=== PATIENT | female | born 1980 | race Hispanic/Latino ===

== ENCOUNTER 2018-08-11 12:42 | Emergency (ER) | payer OTHER, SELFPAY ==
[2018-08-11] MEDS ORDERED: KETOROLAC 30 MG/ML INJ ONE (14:01)
[2018-08-11] MEDS ORDERED: DIPHENHYDRAMINE 50 MG/ML VIAL ONE (14:01)
[2018-08-11] MEDS ORDERED: METOCLOPRAMIDE 10 MG/2mL INJ ONE (14:01)
[2018-08-11] MEDS ORDERED: NA CHLORIDE 0.9% 1,000 ML ONE (14:02)
--- NOTE | 2018-08-11 14:13 | RAD REPORT ---
EXAM DESCRIPTION: CT - Head Brain Wo Cont - 08/11/2018 2:02 pm CLINICAL HISTORY: HEADACHE Headache, nausea and vomiting. COMPARISON: HEAD BRAIN W O CONTRAST dated 03/28/2010 TECHNIQUE: All CT scans are performed using dose optimization technique as appropriate and may inclu de automated exposure control or mA/KV adjustment according to patient size. FINDINGS: No intracranial hemorrhage, hydrocephalus or extra-axial fluid collection.No areas of brai n edema or evidence of midline shift. The paranasal sinuses and mastoids are clear. The calvarium is intact. IMPRESSION: No acute intracranial abnormality.
--- NOTE | 2018-08-11 15:19 | EDPHYS ---
Physician Documentation [facility] Name: Marce Wu Age: 37 yrs Sex: Female : 1980 Arrival Date: 08/11/2018 Time: 12:45 Bed 30 Private MD: William So ED Physician Tramaine Sherwood HPI: 08/11 15:00 This 37 yrs old Female presents to ER via Ambulatory with complaints of pm1 Headache. 15:00 The patient complains of pain to the top of head and forehead. The patient describes pm1 the headache as aching, constant. Onset: The symptoms/episode began/occurred 4 day(s) ago. Associated signs and symptoms: Pertinent positives: nausea, vomiting, Pertinent negatives: dizziness, fever, paresthesias, vision changes, vision loss, weakness. Severity of symptoms: in the emergency department the pain is actually worse. Headache History: The patient has had previous headaches and this one is different than previous episodes. The symptoms are alleviated by nothing. the symptoms are aggravated by nothing. The patient has experienced similar episodes in the past, multiple times. The patient has not recently seen a physician. 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 - Social history:: Smoking status: Patient/guardian denies using tobacco. - Ebola Screening: : No symptoms or risks identified at this time. ROS: 15:00 Constitutional: Negative for fever, chills, and weight loss, Eyes: Negative for injury, pm1 pain, redness, and discharge, ENT: Negative for injury, pain, and discharge, Neck: Negative for injury, pain, and swelling, Cardiovascular: Negative for chest pain, palpitations, and edema, Respiratory: Negative for shortness of breath, cough, wheezing, and pleuritic chest pain, Back: Negative for injury and pain, : Negative for injury, bleeding, discharge, and swelling, MS/Extremity: Negative for injury and deformity, Skin: Negative for injury, rash, and discoloration. 15:00 Abdomen/GI: Positive for nausea and vomiting, Negative for abdominal pain, diarrhea, constipation. 15:00 Neuro: Positive for headache. Exam: 15:00 Constitutional: This is a well developed, well nourished patient who is awake, alert, pm1 and in no acute distress. Eyes: Pupils equal round and reactive to light, extra-ocular motions intact. Lids and lashes normal. Conjunctiva and sclera are non-icteric and not injected. Cornea within normal limits. Periorbital areas with no swelling, redness, or edema. ENT: Nares patent. No nasal discharge, no septal abnormalities noted. Tympanic membranes are normal and external auditory canals are clear. Oropharynx with no redness, swelling, or masses, exudates, or evidence of obstruction, uvula midline. Mucous membranes moist. Neck: Trachea midline, no thyromegaly or masses palpated, and no cervical lymphadenopathy. Supple, full range of motion without nuchal rigidity, or vertebral point tenderness. No Meningismus. Chest/axilla: Normal chest wall appearance and motion. Nontender with no deformity. No lesions are appreciated. Cardiovascular: Regular rate and rhythm with a normal S1 and S2. No gallops, murmurs, or rubs. Normal PMI, no JVD. No pulse deficits. Respiratory: Lungs have equal breath sounds bilaterally, clear to auscultation and percussion. No rales, rhonchi or wheezes noted. No increased work of breathing, no retractions or nasal flaring. 15:00 Abdomen/GI: Soft, non-tender, with normal bowel sounds. No distension or tympany. No guarding or rebound. No evidence of tenderness throughout. Back: No spinal tenderness. No costovertebral tenderness. Full range of motion. Skin: Warm, dry with normal turgor. Normal color with no rashes, no lesions, and no evidence of cellulitis. MS/ Extremity: Pulses equal, no cyanosis. Neurovascular intact. Full, normal range of motion. 15:00 Head/face: Noted is no obvious of injury or deformity except Scalp tenderness with palpation. 15:00 Neuro: Orientation: is normal, Motor: is normal, moves all fours. Vital Signs: 12:57 BP 133 / 90; Pulse 88; Resp 16 S; Temp 98.1(TE); Pulse Ox 99% on R/A; Weight 72.57 kg aa5 (R); Height 5 ft. 3 in. (160.02 cm) (R); Pain 10/10; 14:07 BP 122 / 88; Pulse 75; Resp 18; Pulse Ox 99% on R/A; tl3 14:53 Pulse 66; Resp 18; Pulse Ox 100% ; tl3 12:57 Body Mass Index 28.34 (72.57 kg, 160.02 cm) aa5 MDM: 13:32 Patient medically screened. pm1 15:15 Data reviewed: vital signs. Data interpreted: Pulse oximetry: on room air is 100 %. pm1 Interpretation: normal. Counseling: I had a detailed discussion with the patient and/or guardian regarding: the historical points, exam findings, and any diagnostic results supporting the discharge/admit diagnosis, radiology results, the need for outpatient follow up, to return to the emergency department if symptoms worsen or persist or if there are any questions or concerns that arise at home. 08/11 13:50 Order name: CT Head Brain wo Cont; Complete Time: 14:17 pm1 08/11 13:50 Order name: IV Saline Lock; Complete Time: 14:10 pm1 Administered Medications: 13:50 Drug: Reglan 10 mg Route: IVP; Infused Over: 2 mins; Site: right forearm; tl3 15:32 Follow up: Response: No adverse reaction ak1 13:50 Drug: TORadol 30 mg Route: IVP; Infused Over: 2 mins; Site: right forearm; tl3 15:32 Follow up: Response: No adverse reaction; Pain is decreased ak1 13:50 Drug: Benadryl 25 mg Route: IVP; Infused Over: 2 mins; Site: right forearm; tl3 15:32 Follow up: Response: No adverse reaction ak1 Disposition: 08/11/18 15:16 Discharged to Home. Impression: Headache. - Condition is Stable. - Discharge Instructions: General Headache Without Cause. - Prescriptions for Fiorinal 50- 325-40 mg Oral Capsule - take 1 capsule by ORAL route every 4 hours As needed - not to exceed 6 capsules per day; 20 capsule. - Medication Reconciliation Form, Thank You Letter form. - Follow up: Emergency Department; When: As needed; Reason: Worsening of condition. Follow up: Private Physician; When: 2 - 3 days; Reason: Recheck today's complaints, Continuance of care, Re-evaluation by your physician. - Problem is new. - Symptoms have improved. Signatures: Dispatcher [employer] EDMS Felisha Wheeler, RN RN aa5 Antonina Billingsley RN RN ak1 Nikos Wise, PEDIATRIC SPEECH THERAPIST PEDIATRIC SPEECH THERAPIST pm1 Meche Garcia RN RN tl3 Corrections: (The following items were deleted from the chart) 15:33 15:16 08/11/2018 15:16 Discharged to Home. Impression: Headache. Condition is Stable. ak1 Forms are Medication Reconciliation Form, Thank You Letter, Antibiotic Education, Prescription Opioid Use. Follow up: Emergency Department; When: As needed; Reason: Worsening of condition. Follow up: Private Physician; When: 2 - 3 days; Reason: Recheck today's complaints, Continuance of care, Re-evaluation by your physician. Problem is new. Symptoms have improved. pm1
--- NOTE | 2018-08-11 15:19 | ER ---
Nurse's Notes [facility] Name: Marce Wu Age: 37 yrs Sex: Female : 1980 Arrival Date: 08/11/2018 Time: 12:45 Bed 30 Private MD: William So Diagnosis: Headache Presentation: 08/11 12:55 Presenting complaint: Patient states: Headache to whole head that began Wednesday. Pt also aa5 reports nausea and vomiting. Pt states "I can't keep anything down". Transition of care: patient was not received from another setting of care. Onset of symptoms was July 2018. Risk Assessment: Do you want to hurt yourself or someone else? Patient reports no desire to harm self or others. Initial Sepsis Screen: Does the patient meet any 2 criteria? No. Patient's initial sepsis screen is negative. Does the patient have a suspected source of infection? No. Patient's initial sepsis screen is negative. Care prior to arrival: None. 12:55 Method Of Arrival: Ambulatory aa5 12:55 Acuity: NILE 3 aa5 Triage Assessment: 15:33 General: Appears in no apparent distress. GI: Reports nausea. 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 - Social history:: Smoking status: Patient/guardian denies using tobacco. - Ebola Screening: : No symptoms or risks identified at this time. Screenin:20 Abuse screen: Denies threats or abuse. Nutritional screening: No deficits noted. tl3 Tuberculosis screening: No symptoms or risk factors identified. Fall Risk None identified. Assessment: 13:20 General: Appears distressed, uncomfortable, slender, well groomed, well developed, well tl3 nourished, Behavior is calm, cooperative, appropriate for age. Pain: Complains of pain in headache. Neuro: Level of Consciousness is awake, alert, obeys commands, Oriented to person, place, time, situation, Appropriate for age. Cardiovascular: Patient's skin is warm and dry. Respiratory: Airway is patent Respiratory effort is even, unlabored, Respiratory pattern is regular, symmetrical. GI: Pt is actively vomiting. : No signs and/or symptoms were reported regarding the genitourinary system. EENT: No signs and/or symptoms were reported regarding the EENT system. Derm: No signs and/or symptoms reported regarding the dermatologic system. Musculoskeletal: No signs and/or symptoms reported regarding the musculoskeletal system. 14:10 Reassessment: pt is feeling anxious, twisting in the bed, thinks it is an adverse tl3 reaction to Benadryl, Nikos notified, no new orders, will continue to monitor. Vital Signs: 12:57 BP 133 / 90; Pulse 88; Resp 16 S; Temp 98.1(TE); Pulse Ox 99% on R/A; Weight 72.57 kg aa5 (R); Height 5 ft. 3 in. (160.02 cm) (R); Pain 10/10; 14:07 BP 122 / 88; Pulse 75; Resp 18; Pulse Ox 99% on R/A; tl3 14:53 Pulse 66; Resp 18; Pulse Ox 100% ; tl3 12:57 Body Mass Index 28.34 (72.57 kg, 160.02 cm) aa5 ED Course: 12:45 Patient arrived in ED. ag5 12:46 William So MD is Private Physician. ag5 12:56 Triage completed. aa5 13:07 [facility] pm1 13:07 Tramaine Sherwood MD is Attending Physician. pm1 13:14 Meche Garcia, ROQUE is Primary Nurse. tl3 13:20 Patient has correct armband on for positive identification. Bed in low position. Call tl3 light in reach. Side rails up X2. Pulse ox on. NIBP on. Warm blanket given. 13:20 No provider procedures requiring assistance completed. Initial lab(s) drawn, by me, tl3 held in ED. Inserted saline lock: 22 gauge in right forearm, using aseptic technique. Blood collected. 14:03 CT Head Brain wo Cont In Process Unspecified. EDMS 14:07 Arm band placed on left wrist. tl3 15:33 IV discontinued, intact, bleeding controlled, No redness/swelling at site. Pressure ak1 dressing applied. Administered Medications: 13:50 Drug: Reglan 10 mg Route: IVP; Infused Over: 2 mins; Site: right forearm; tl3 15:32 Follow up: Response: No adverse reaction ak1 13:50 Drug: TORadol 30 mg Route: IVP; Infused Over: 2 mins; Site: right forearm; tl3 15:32 Follow up: Response: No adverse reaction; Pain is decreased ak1 13:50 Drug: Benadryl 25 mg Route: IVP; Infused Over: 2 mins; Site: right forearm; tl3 15:32 Follow up: Response: No adverse reaction ak1 Outcome: 15:16 Discharge ordered by MD. pm1 15:33 Discharged to home ambulatory, with family. ak1 15:33 Condition: improved 15:33 Discharge instructions given to patient, family, Instructed on discharge instructions, follow up and referral plans. no drinking with medication, no driving heavy equipment, medication usage, Demonstrated understanding of instructions, follow-up care, medications, Prescriptions given X 1. 15:33 Patient left the ED. ak1 Signatures: Dispatcher [employer] EDMS Felisha Wheeler RN RN aa5 Antonina Billingsley RN RN ak1 Nikos Wise, LICENSE DISTRIBUTOR LICENSE DISTRIBUTOR pm1 Meche Garcia RN RN tl3 Richa Conklin ag5
[2018-08-11 15:51] VITALS: TEMP 98.1
[2018-08-11 15:55] VITALS: BP 122/88
[2018-08-11 15:59] VITALS: O2SAT 100
== END 2018-08-11 15:33 | disposition home or self-care (01) ==
LOC: ER 12:42
DX: R51 Headache (principal); E03.9 Hypothyroidism, unspecified; J45.909 Unspecified asthma, uncomplicated
CPT/HCPCS: 70450; 96374; 96375; 99284; J2765; J7030

== ENCOUNTER 2019-05-12 09:28 | Emergency (ER) | payer BC ==
[2019-05-12] MEDS ORDERED: ONDANSETRON 4 MG/2 ML VIAL ONE (10:10)
[2019-05-12] MEDS ORDERED: MORPHINE 4 MG/ML SYR ONE (10:10)
[2019-05-12] MEDS ORDERED: NA CHLORIDE 0.9% 1,000 ML ONE (10:10)
[2019-05-12 10:36] LABS: Absolute Lymphocytes (CBC) 0.7 K/uL (0.7-4.9); Basophils % 0.1 % (0-1.3); Hematocrit 42.7 % (36.0-45.0); Lymphocytes % 7.3 % (15.3-44.8); MPV 7.6 fL (7.6-11.3); RBC Red Blood Cell Count 4.85 M/uL (3.86-4.86)
[2019-05-12 10:49] LABS: Albumin 3.4 g/dL (3.4-5.0); Bilirubin Direct 0.2 mg/dL (0-0.2); Bilirubin Total 0.4 mg/dL (0.2-1.0); Potassium 3.3 mmol/L (3.5-5.1); Protein, Total 7.2 g/dL (6.4-8.2)
[2019-05-12 11:12] LABS: Blood Morphology Comment NOT SEEN (NOT SEEN); Platelet Estimate ADEQ
--- NOTE | 2019-05-12 11:59 | RAD REPORT ---
EXAM DESCRIPTION: CT - Abdomen Pelvis W Contrast - 05/12/2019 11:15 am CLINICAL HISTORY: lower abdominal pain COMPARISON: None. TECHNIQUE: Biphasic, helical CT imaging of the abdomen and pelvis was performed following 100 ml non -ionic IV contrast. No oral contrast given. All CT scans are performed using dose optimization technique as appropriate and may include automated exposure control or mA/KV adjustment according to patient size. FINDINGS: No suspicious findings in the lung bases. The liver, spleen, and pancreas show no suspicious findings. Cholecystectomy clips are present. No ab normal biliary tree dilatation. Duct stones can be occult on CT imaging. Symmetric renal function is seen with no hydronephrosis or suspicious renal mass. No pyelonephritis o r acute parenchymal process. No adrenal abnormalities. No urinary bladder wall thickening or mass evident. Bladder is mostly contracted which limits detail . No uterus abnormality. No left ovary abnormality. Right ovary may contain a 3 centimeter cyst. Nitza ent has numerous fluid filled nondilated small bowel loops abutting the ovaries making it difficult t o distinguish ovarian cyst from small bowel loop. No gastric dilatation or wall thickening. Small bowel loops are not dilated. No small bowel wall thic kening or enhancement abnormality identified. Appendix is normal. Moderate stool volume seen in the c ecum and ascending colon. The hepatic flexure down to the rectum shows prominent wall thickening or m ucosal edema. A focal mass is not identified. No free air, free fluid or pneumatosis. No significant stranding adjacent to the colon. No hernia, mass or bulky lymphadenopathy. No suspicious bony findings. IMPRESSION: Nonspecific colitis findings seen as nodular, thickened mucosa of the colon from hepatic flexure to the rectum. Nonspecific fluid-filled nondilated small bowel loops. The appendix is normal. Suspected right ovarian cyst. This is difficult to distinguish from the abutting fluid-filled small b owel loops. This is probably not a significant finding. Cholecystectomy with no biliary tree dilatation.
[2019-05-12 12:01] LABS: Urine Blood TRACE (NEG); Urine Glucose NEGATIVE (NEG); Urine Protein 1+ (NEG); Urine Specific Gravity 1.025 (1.005-1.030); Urine pH 5.5 (5.0-7.0)
--- NOTE | 2019-05-12 12:09 | ER ---
Nurse's Notes [facility] Name: Marce Wu Age: 38 yrs Sex: Female : 1980 Arrival Date: 05/12/2019 Time: 09:30 Bed 15 Private MD: William So Diagnosis: Colitis;Ovarian Cyst Presentation: 05/12 09:55 Presenting complaint: Patient states: pain in low back, pelvis and thighs that began ss yesterday. 09:55 Transition of care: patient was not received from another setting of care. Onset of ss symptoms was May 11, 2019. Risk Assessment: Do you want to hurt yourself or someone else? Patient reports no desire to harm self or others. Initial Sepsis Screen: Does the patient meet any 2 criteria? No. Patient's initial sepsis screen is negative. Does the patient have a suspected source of infection? No. Patient's initial sepsis screen is negative. Care prior to arrival: None. 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 - Social history:: Smoking status: Patient/guardian denies using tobacco. - Ebola Screening: : Patient denies exposure to infectious person Patient denies travel to an Ebola-affected area in the 21 days before illness onset. Screenin:00 Abuse screen: Denies threats or abuse. Denies injuries from another. Nutritional ca1 screening: No deficits noted. Tuberculosis screening: No symptoms or risk factors identified. Fall Risk None identified. Assessment: 10:00 General: Appears in no apparent distress. comfortable, Behavior is calm, cooperative, ca1 appropriate for age. Pain: Complains of pain in pelvis Pain currently is 6 out of 10 on a pain scale. Pain began 1 day ago. Is continuous. Neuro: Level of Consciousness is awake, alert, obeys commands, Oriented to person, place, time, situation. Cardiovascular: Heart tones S1 S2 present Capillary refill < 3 seconds. Respiratory: Airway is patent Respiratory effort is even, unlabored, Respiratory pattern is regular, symmetrical, Breath sounds are clear bilaterally. GI: Abdomen is flat, non-distended, Bowel sounds present X 4 quads. Abd is soft and non tender X 4 quads. Reports diarrhea. : Urine is cloudy. EENT: No deficits noted. No signs and/or symptoms were reported regarding the EENT system. Derm: Skin is intact, is healthy with good turgor, Skin is pink, warm \T\ dry. Musculoskeletal: Circulation, motion, and sensation intact. Capillary refill < 3 seconds, Range of motion: intact in all extremities. 10:50 Reassessment: Patient appears in no apparent distress at this time. Patient and/or ca1 family updated on plan of care and expected duration. Pain level reassessed. Patient is alert, oriented x 3, equal unlabored respirations, skin warm/dry/pink. 11:42 Reassessment: Patient appears in no apparent distress at this time. Patient is alert, ca1 oriented x 3, equal unlabored respirations, skin warm/dry/pink. 12:20 Reassessment: Patient appears in no apparent distress at this time. Patient is alert, ca1 oriented x 3, equal unlabored respirations, skin warm/dry/pink. Vital Signs: 10:03 BP 102 / 73; Pulse 92; Resp 16; Temp 98.2; Pulse Ox 100% on R/A; Weight 68.04 kg; ss Height 5 ft. 3 in. (160.02 cm); Pain 6/10; 10:50 BP 106 / 65; Pulse 80; Resp 17 S; Pulse Ox 100% on R/A; ca1 11:45 BP 106 / 77; Pulse 71; Resp 18 S; Pulse Ox 100% ; ca1 12:20 BP 108 / 76; Pulse 86; Resp 17 S; Pulse Ox 100% on R/A; ca1 10:03 Body Mass Index 26.57 (68.04 kg, 160.02 cm) ss ED Course: 09:30 Patient arrived in ED. mr 09:31 William So MD is Private Physician. mr 09:46 Carlos Alberto Monterroso PA is PHCP. jmm 09:46 Roque Mckenzie MD is Attending Physician. [facility] 09:56 Glendy Juarez, ROQUE is Primary Nurse. ca1 10:03 Triage completed. ss 10:03 Arm band placed on left wrist. ss 10:05 Patient has correct armband on for positive identification. Placed in gown. Bed in low ca1 position. Call light in reach. Side rails up X 1. Pulse ox on. NIBP on. Warm blanket given. 10:05 No provider procedures requiring assistance completed. ca1 10:11 Radiology exam delayed due to lab results not completed at this time. (BUN/Creatinine) sw test not completed at this time. 10:19 Initial lab(s) drawn, by fl, sent to lab. Urine collected: clean catch specimen, clear. 5 Inserted saline lock: 22 gauge in right antecubital area, using aseptic technique. Blood collected. 10:20 Urine --Ancillary (enter results) Sent. [facility] 10:20 Urine Dipstick--Ancillary (enter results) Sent. [facility] 10:20 Basic Metabolic Panel Sent. [facility] 10:20 CBC with Diff Sent. [facility] 10:21 Creatinine for Radiology Sent. [facility] 10:21 Hepatic Function Sent. [facility] 10:21 Lipase Sent. [facility] 11:15 CT Abd/Pelvis - IV Contrast Only In Process Unspecified. EDMS 12:08 John Arroyo MD is Referral Physician. [facility] 12:21 IV discontinued, intact, bleeding controlled, No redness/swelling at site. Pressure ca1 dressing applied. Administered Medications: 10:20 Drug: NS 0.9% 1000 ml Route: IV; Rate: 1 bolus; Site: right antecubital; ca1 12:09 Follow up: Response: No adverse reaction; IV Status: Completed infusion ca1 10:21 Drug: Zofran 4 mg Route: IVP; Site: right antecubital; ca1 11:40 Follow up: Response: No adverse reaction; Pain is decreased ca1 10:24 Drug: morphine 4 mg {Note: RASS - 0.} Route: IVP; Site: right antecubital; ca1 11:41 Follow up: Response: No adverse reaction; Pain is decreased; RASS: Alert and Calm (0) ca1 Outcome: 12:09 Discharge ordered by . [facility] 12:21 Discharged to home ambulatory, PT's mother is driving her home. ca1 12:21 Condition: stable 12:21 Discharge instructions given to patient, Instructed on discharge instructions, follow up and referral plans. medication usage, Demonstrated understanding of instructions, follow-up care, medications, Prescriptions given X 4. 12:24 Patient left the ED. ca1 Signatures: Dispatcher [employer] EDMS Carlos Alberto Monterroso PA PA jmm Nilton, Natalya mr Odessa Martin, RN RN Kristine Luu Maria [facility] Glendy Juarez RN RN ca1 Corrections: (The following items were deleted from the chart) 10: 10:00 Patient has correct armband on for positive identification. Placed in gown. Bed ca1 in low position. Call light in reach. Side rails up X 1. ca1 10: 10:00 Pulse ox on. NIBP on. ca1 ca1 10: 10:00 Warm blanket given. ca1 ca1
--- NOTE | 2019-05-12 12:09 | EDPHYS ---
Physician Documentation [facility] Name: Marce Wu Age: 38 yrs Sex: Female : 1980 Arrival Date: 05/12/2019 Time: 09:30 Bed 15 Private MD: William So ED Physician Roque Mckenzie HPI: 05/12 09:57 This 38 yrs old Female presents to ER via Ambulatory with complaints of Pelvic jmm Pain. 09:57 The patient presents with pelvic pain. Onset: The symptoms/episode began/occurred jmm acutely, 1 day(s) ago. Modifying factors: The symptoms are alleviated by nothing, the symptoms are aggravated by lying. Associated signs and symptoms: Pertinent negatives: diarrhea, fever, hematuria, nausea, vaginal bleeding, vaginal discharge, vomiting. The patient has experienced a previous episode, approximately 20 years ago, with ruptured ovarian cyst. 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 - Social history:: Smoking status: Patient/guardian denies using tobacco. - Ebola Screening: : Patient denies exposure to infectious person Patient denies travel to an Ebola-affected area in the 21 days before illness onset. ROS: 09:57 Constitutional: Negative for fever, chills, and weight loss, Cardiovascular: Negative jmm for chest pain, palpitations, and edema, Respiratory: Negative for shortness of breath, cough, wheezing, and pleuritic chest pain. 09:57 Abdomen/GI: Positive for abdominal pain. 09:57 All other systems are negative. Exam: 09:57 Constitutional: This is a well developed, well nourished patient who is awake, alert, jmm and in no acute distress. Head/Face: atraumatic. Eyes: EOMI, no conjunctival erythema appreciated ENT: Moist Mucus Membranes Neck: Trachea midline, Supple Chest/axilla: Normal chest wall appearance and motion. Cardiovascular: Regular rate and rhythm. No edema appreciated Respiratory: Normal respirations, no respiratory distress appreciated 09:57 Back: Normal ROM Skin: General appearance color normal MS/ Extremity: Moves all extremities, no obvious deformities appreciated, no edema noted to the lower extremities Neuro: Awake and alert, normal gait Psych: Behavior is normal, Mood is normal, Patient is cooperative and pleasant 09:57 Abdomen/GI: Inspection: abdomen appears normal, Bowel sounds: normal, Palpation: abdomen is soft and non-tender, in all quadrants. Vital Signs: 10:03 BP 102 / 73; Pulse 92; Resp 16; Temp 98.2; Pulse Ox 100% on R/A; Weight 68.04 kg; ss Height 5 ft. 3 in. (160.02 cm); Pain 6/10; 10:50 BP 106 / 65; Pulse 80; Resp 17 S; Pulse Ox 100% on R/A; ca1 11:45 BP 106 / 77; Pulse 71; Resp 18 S; Pulse Ox 100% ; ca1 12:20 BP 108 / 76; Pulse 86; Resp 17 S; Pulse Ox 100% on R/A; ca1 10:03 Body Mass Index 26.57 (68.04 kg, 160.02 cm) ss MDM: 09:57 Patient medically screened. [facility] 12:07 Data reviewed: vital signs, nurses notes. Counseling: I had a detailed discussion with manas the patient and/or guardian regarding: the historical points, exam findings, and any diagnostic results supporting the discharge/admit diagnosis, lab results, radiology results, the need for outpatient follow up, to return to the emergency department if symptoms worsen or persist or if there are any questions or concerns that arise at home. ED course: Pain is decreased in the ED. Patient advised to follow up with GI for further evaluation. Patient otherwise given strict return precautions. Patient understood and agrees with the plan of care. . 05/12 09:58 Order name: Basic Metabolic Panel; Complete Time: : [facility] 05/12 09:58 Order name: CBC with Diff; Complete Time: 11:17 [facility] 05/12 09:58 Order name: Creatinine for Radiology; Complete Time: : [facility] 05/12 09:58 Order name: Hepatic Function; Complete Time: : [facility] 05/12 09:58 Order name: Lipase; Complete Time: : [facility] 05/12 10:03 Order name: CPK; Complete Time: : [facility] 05/12 09:58 Order name: IV Saline Lock; Complete Time: 10: [facility] 05/12 09:58 Order name: CT Abd/Pelvis - IV Contrast Only; Complete Time: 12:06 [facility] 05/12 10:08 Order name: Urine Dipstick--Ancillary (enter results); Complete Time: 12:06 05/12 10:08 Order name: Urine --Ancillary (enter results); Complete Time: 12:06 05/12 11:12 Order name: Manual Differential; Complete Time: 11:17 [facility] 05/12 09:58 Order name: Labs collected and sent; Complete Time: 10:21 [facility] 05/12 09:58 Order name: Urine Dipstick-Ancillary (obtain specimen); Complete Time: 10:07 [facility] 05/12 09:58 Order name: Urine Test (obtain specimen); Complete Time: 10:07 [facility] Administered Medications: 10:20 Drug: NS 0.9% 1000 ml Route: IV; Rate: 1 bolus; Site: right antecubital; ca1 12:09 Follow up: Response: No adverse reaction; IV Status: Completed infusion ca1 10:21 Drug: Zofran 4 mg Route: IVP; Site: right antecubital; ca1 11:40 Follow up: Response: No adverse reaction; Pain is decreased ca1 10:24 Drug: morphine 4 mg {Note: RASS - 0.} Route: IVP; Site: right antecubital; ca1 11:41 Follow up: Response: No adverse reaction; Pain is decreased; RASS: Alert and Calm (0) ca1 Disposition: 13:01 Co-signature as Attending Physician, Roque Mckenzie MD I agree with the assessment and kdr plan of care. Disposition: 05/12/19 12:09 Discharged to Home. Impression: Colitis, Ovarian Cyst. - Condition is Stable. - Discharge Instructions: Ovarian Cyst, Colitis. - Prescriptions for Zofran ODT 4 mg Oral tablet,disintegrating - place 1 tablet by TRANSLINGUAL route every 4-6 hours; 20 tablet. Flagyl 500 mg Oral Tablet - take 1 tablet by ORAL route every 6 hours for 10 days; 40 tablet. Ultracet 37.5- 325 mg Oral Tablet - take 1 tablet by ORAL route every 6 hours - for up to 5 days; do not exceed 8 tablets per day.; 30 tablet. Cipro 500 mg Oral Tablet - take 1 tablet by ORAL route every 12 hours for 10 days; 20 tablet. - Medication Reconciliation Form, Thank You Letter, Antibiotic Education, Prescription Opioid Use form. - Follow up: John Arroyo MD; When: 2 - 3 days; Reason: Recheck today's complaints, Continuance of care, Re-evaluation by your physician. Signatures: Dispatcher [employer] EDMS Roque Mckenzie MD MD kdr Mickail, Joel, PA PA jmm Smirch, Shelby, RN RN ss AcGlendy cabrera RN RN ca1 Corrections: (The following items were deleted from the chart) 12:24 12:09 05/12/2019 12:09 Discharged to Home. Impression: Colitis; Ovarian Cyst. Condition ca1 is Stable. Forms are Medication Reconciliation Form, Thank You Letter, Antibiotic Education, Prescription Opioid Use. Follow up: John Arroyo; When: 2 - 3 days; Reason: Recheck today's complaints, Continuance of care, Re-evaluation by your physician. manas
[2019-05-12 12:48] VITALS: TEMP 98.2; O2SAT 100
[2019-05-12 12:54] VITALS: BP 108/76
== END 2019-05-12 12:24 | disposition home or self-care (01) ==
LOC: ER 09:28
DX: K52.9 Noninfective gastroenteritis and colitis, unspecified (principal); N83.209 Unspecified ovarian cyst, unspecified side
CPT/HCPCS: 96361; 85025; 80048; 36415; 82550; 81025; 80076; 81003; 83690; 74177; 96375; 96374; 99284; Q9967; J7030; J2405